=== PATIENT | male | born 1950 | race Caucasian/White ===

== ENCOUNTER 2022-03-02 08:42 | Outpatient (CLI) | payer MEDICARE, BC, SELFPAY ==
[2022-03-02 13:57] LABS: Cholesterol* 155 mg/dL (90-199)
[2022-03-02 13:58] LABS: Alanine Aminotransferase* 27 U/L (4-50); HDL Cholesterol* 40 mg/dL (>=40); LDL Cholesterol Calculated 82 mg/dL (<100); Triglycerides* 167 mg/dL (40-149)
[2022-03-02 14:26] LABS: PSA Screen* 0.57 ng/mL (0.10-4.00)
== END 2022-03-02 08:43 | disposition home or self-care (01) ==
PROVIDERS: PCP Family Medicine; Visit Provider Family Medicine
DX: E03.9 Hypothyroidism, unspecified (principal); E78.5 Hyperlipidemia, unspecified; E11.9 Type 2 diabetes mellitus without complications; I10 Essential (primary) hypertension; Z12.5 Encounter for screening for malignant neoplasm of prostate
CPT/HCPCS: 80061; 84153; 84443; 84460

== ENCOUNTER 2022-06-02 08:40 | Outpatient (CLI) | payer MEDICARE, BC, SELFPAY ==
[2022-06-02 14:20] LABS: Cholesterol* 121 mg/dL (90-199)
[2022-06-02 14:21] LABS: HDL Cholesterol* 37 mg/dL (>=40); LDL Cholesterol Calculated 47 mg/dL (<100); Triglycerides* 185 mg/dL (40-149)
[2022-06-02 14:51] LABS: PSA Screen* 0.64 ng/mL (0.10-4.00)
== END 2022-06-02 08:41 | disposition home or self-care (01) ==
PROVIDERS: PCP Family Medicine; Visit Provider Family Medicine
DX: E78.5 Hyperlipidemia, unspecified (principal); Z12.5 Encounter for screening for malignant neoplasm of prostate
CPT/HCPCS: 80061; 84153

== ENCOUNTER 2022-11-30 10:51 | Outpatient (CLI) | payer MEDICARE, BC, SELFPAY ==
[2022-11-30 14:23] LABS: Chloride* 111 mmol/L (96-114); Sodium* 137 mmol/L (135-149)
[2022-11-30 14:26] LABS: Blood Urea Nitrogen* 23 mg/dL (7-30); Carbon Dioxide* 15 mmol/L (20-32); Creatinine* 1.4 mg/dL (0.5-1.5); Estimated Glomerular Filt Rate 53 ml/min
[2022-11-30 14:27] LABS: Calcium* 9.2 mg/dL (8.4-10.6); Glucose* 188 mg/dL (60-115)
[2022-11-30 14:39] LABS: TSH With Reflex to FT4* 0.745 uIU/mL (0.270-4.200)
== END 2022-11-30 10:52 | disposition home or self-care (01) ==
PROVIDERS: PCP Family Medicine; Visit Provider Family Medicine
DX: I10 Essential (primary) hypertension (principal); E03.9 Hypothyroidism, unspecified
CPT/HCPCS: 80048; 84443

== ENCOUNTER 2023-08-30 08:29 | Outpatient (CLI) | payer MEDICARE, BC, SELFPAY | END 2023-08-30 08:30 | disposition home or self-care (01) | PROVIDERS: PCP Family Medicine; Visit Provider Family Medicine | DX: E78.2 Mixed hyperlipidemia (principal); Z12.5 Encounter for screening for malignant neoplasm of prostate | CPT/HCPCS: 80061; G0103 ==

== ENCOUNTER 2023-11-30 09:15 | Outpatient (CLI) | payer MEDICARE, BC, SELFPAY | END 2023-11-30 09:16 | disposition home or self-care (01) | LOC: FBOREF 09:15 | PROVIDERS: PCP Family Medicine; Visit Provider Family Medicine | DX: E11.9 Type 2 diabetes mellitus without complications (principal); E78.2 Mixed hyperlipidemia; E03.9 Hypothyroidism, unspecified; I10 Essential (primary) hypertension; Z79.4 Long term (current) use of insulin | CPT/HCPCS: 84439; 84443 ==

== ENCOUNTER 2024-03-01 07:42 | Outpatient (CLI) | payer MEDICARE, BC, SELFPAY | END 2024-03-01 07:43 | disposition home or self-care (01) | LOC: FBOREF 07:43 | PROVIDERS: PCP Family Medicine; Visit Provider Family Medicine | DX: E03.9 Hypothyroidism, unspecified (principal) | CPT/HCPCS: 84439; 84443 ==

== ENCOUNTER 2024-06-05 08:35 | Outpatient (CLI) | payer MEDICARE, BC, SELFPAY | END 2024-06-05 08:36 | disposition home or self-care (01) | PROVIDERS: PCP Family Medicine; Visit Provider Family Medicine | DX: E03.9 Hypothyroidism, unspecified (principal); I10 Essential (primary) hypertension; E11.9 Type 2 diabetes mellitus without complications; Z79.4 Long term (current) use of insulin | CPT/HCPCS: 80048; 84443 ==

== ENCOUNTER 2024-09-04 08:02 | Outpatient (CLI) | payer MEDICARE, BC, SELFPAY ==
[2024-09-04 14:48] LABS: Creatinine Urine 96.9 mg/dL
[2024-09-04 14:55] LABS: Microalbumin Creatinine Ratio 20 mg/g (0-30); Microalbumin Urine 2 mg/dL
== END 2024-09-04 08:03 | disposition home or self-care (01) ==
PROVIDERS: PCP Family Medicine; Visit Provider Family Medicine
DX: E11.9 Type 2 diabetes mellitus without complications (principal); E78.2 Mixed hyperlipidemia; Z79.4 Long term (current) use of insulin; Z12.5 Encounter for screening for malignant neoplasm of prostate
CPT/HCPCS: 80061; 82043; 82570; G0103

== ENCOUNTER 2024-11-07 10:09 | Outpatient (CLI) | payer MEDICARE, BC, SELFPAY | END 2024-11-07 10:10 | disposition home or self-care (01) | PROVIDERS: PCP Family Medicine; Visit Provider Family Medicine | DX: Z01.818 Encounter for other preprocedural examination (principal); I10 Essential (primary) hypertension | CPT/HCPCS: 80048; 85025 ==

== ENCOUNTER 2025-02-05 11:56 | Outpatient (CLI) | payer MEDICARE, BC, SELFPAY ==
--- NOTE | 2025-02-05 13:07 | P.ANES_ITS ---
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
--- NOTE | 2025-02-05 13:07 | W.ANESCHARGE ---
Anesthesia Charges Start Date/Time Anesthesia Start Date: 02/05/25 Anesthesia Start Time: 12:30 Stop Date/Time Anesthesia Stop Date: 02/05/25 Anesthesia Stop Time: 12:59 Summary Extremes of Age - Over 70 or under 1: EXTRACTIVE METALLURGIST Coding CPT Codes CPT Codes: ANES LWR INTST SCR COLSC - 23953 ([id number]) P3 - PATIENT W/SEVERE SYS DISEASE, QK - COURTROOM REPORTER 2-4 CNCRNT ANES PROC Additional Codes: Summary - Extremes of Age - Over 70 or under 1: EXTRACTIVE METALLURGIST ([id number])
--- NOTE | 2025-02-05 13:45 | W.ANESCHARGE ---
Anesthesia Charges Start Date/Time Anesthesia Start Date: 02/05/25 Anesthesia Start Time: 12:30 Stop Date/Time Anesthesia Stop Date: 02/05/25 Anesthesia Stop Time: 12:59 Summary Extremes of Age - Over 70 or under 1: MDA Coding CPT Codes CPT Codes: ANES LWR INTST SCR COLSC - 86353 ([id number]) QK - FEEDER SWITCHBOARD OPERATOR 2-4 CNCRNT ANES PROC, QX - ENGINEERING SUPERVISOR SVC W/ MD MED DIRECTION, P3 - PATIENT W/SEVERE SYS DISEASE Additional Codes: Summary - Extremes of Age - Over 70 or under 1: MDA ([id number])
== END 2025-02-05 11:57 | disposition home or self-care (01) ==
LOC: OP CLINIC 11:58
PROVIDERS: PCP Family Medicine; Visit Provider Internal Medicine
DX: Z12.11 Encounter for screening for malignant neoplasm of colon (principal); K64.8 Other hemorrhoids; K57.30 Diverticulosis of large intestine without perforation or abscess without bleeding
CPT/HCPCS: 00812; 45378; 99100; J2704